=== PATIENT | female | born 1990 | race Caucasian/White ===

== ENCOUNTER 2016-11-25 16:50 | Emergency (ER) | payer OTHER ==
[2016-11-25] MEDS ORDERED: IPRATROPIUM-ALBUTEROL 3 ML NEB INHALATION STA (17:13)
--- NOTE | 2016-11-25 17:16 | ED ---
URI HPI - General Chief Complaint: Upper Respiratory Infection Stated Complaint: Cold Symptoms Time Seen by Provider: 11/25/16 17:09 Source: patient, RN notes reviewed Mode of arrival: ambulatory Limitations: no limitations - History of Present Illness Initial Comments: Patient is a 26-year-old female with a chief complaint of upper respiratory congestion and cough for approximately one day. Patient reports that she completed a course of Levaquin one week ago and was feeling fine. Patient reports that she woke up yesterday with some upper respiratory congestion which is now settled into her lungs. Patient reports she has a productive cough. Patient states that she is a smoker. She denies any recent breathing treatments. She denies any decongestants as well. Patient reports that when she takes a deep breath or coughs she has a left sided rib pain. She denies any significant past medical history. She reports that she is up-to-date on vaccinations. However she did not receive the flu vaccine. - Related Data Previous Rx's Medication Instructions Recorded Acetaminophen-Codeine 300-30mg 1 tab PO Q4H PRN #20 tablet 04/19/16 [Tylenol #3] Albuterol Inhaler [Ventolin Hfa 1 - 2 puff INHALATION Q6HR PRN #1 11/25/16 Inhaler] inhaler predniSONE 50 mg PO DAILY #5 tab 11/25/16 Allergies Allergy/AdvReac Type Severity Reaction Status Date / Time No Known Allergies Allergy Verified 11/25/16 16:59 Review of Systems ROS Statement: Those systems with pertinent positive or pertinent negative responses have been documented in the HPI. ROS Other: All systems not noted in ROS Statement are negative. Past Medical History Additional Past Medical History / Comment(s): Obstetric history: She has had 3 previous vaginal deliveries. This is her fourth and she has had care with Dr Gusman since 7 weeks gestation. O+, abs neg, Rub nonimmune, RPR NR, Hep B neg, HIV NR. She is gestational diabetic on insulin and has been followed with NSTs. History of Any Multi-Drug Resistant Organisms: None Reported Past Surgical History: No Surgical Hx Reported Additional Past Surgical History / Comment(s): diagnostic laparoscopy, removal of IUD and repair of cervical laceration Past Anesthesia/Blood Transfusion Reactions: No Reported Reaction Past Psychological History: Bipolar Smoking Status: Current every day smoker Past Alcohol Use History: Occasional Past Drug Use History: None Reported General Exam - General Exam Comments Initial Comments: Patient is a well-appearing 26-year-old female. She does not appear to be in any acute distress. Limitations: no limitations General appearance: alert, in no apparent distress Head exam: Present: atraumatic, normocephalic, normal inspection Eye exam: Present: normal appearance, PERRL, EOMI. Absent: scleral icterus, conjunctival injection, periorbital swelling ENT exam: Present: normal exam, normal oropharynx, mucous membranes moist, TM's normal bilaterally Neck exam: Present: normal inspection, full ROM. Absent: tenderness, meningismus, lymphadenopathy Respiratory exam: Present: normal lung sounds bilaterally, rhonchi (Rhonchi with clearing with coughing.). Absent: respiratory distress, wheezes, rales, stridor Cardiovascular Exam: Present: regular rate, normal rhythm, normal heart sounds. Absent: systolic murmur, diastolic murmur, rubs, gallop, clicks GI/Abdominal exam: Present: soft, normal bowel sounds. Absent: distended, tenderness, guarding, rebound, rigid Extremities exam: Present: normal inspection, full ROM, normal capillary refill. Absent: tenderness, pedal edema, joint swelling, calf tenderness Back exam: Present: normal inspection Neurological exam: Present: alert, oriented X3, CN II-XII intact Psychiatric exam: Present: normal affect, normal mood Skin exam: Present: warm, dry, intact, normal color. Absent: rash Course Vital Signs 11/25/16 11/25/16 11/25/16 16:57 17:42 17:51 Temperature 97.6 F Pulse Rate 80 86 86 Respiratory 16 Rate Blood Pressure 125/62 O2 Sat by Pulse 98 Oximetry 11/25/16 18:00 Temperature 97.9 F Pulse Rate 80 Respiratory 18 Rate Blood Pressure 134/66 O2 Sat by Pulse 97 Oximetry - Reevaluation(s) Reevaluation #1: 11/25/16 17:40 Patient is given a DuoNeb treatment. Patient does report some improvement with that. Medical Decision Making - Medical Decision Making Patient is a 19-year-old female with 1 day of cough and congestion. Patient reports she's had multiple rounds of antibiotics for the past 6 months. Patient is a smoker. Patient was given a DuoNeb treatment and reports much improvement after that. Chest x-ray was negative for pneumonia. Patient will be started on steroids for bronchitis. Patient understood history plan and turned parameters were discussed. Patient advised follow-up with primary care provider in one to 2 days. - Radiology Data Radiology results: report reviewed Chest x-ray was reviewed and is negative for any acute process. No pneumonia, pleural effusion, pneumothorax or osseous lesions. Disposition Clinical Impression: Bronchitis Disposition: HOME SELF-CARE Condition: Good Instructions: Acute Bronchitis (ED) Additional Instructions: Patient instructed to rest, increase fluids and to use inhaler as directed. Also complete steroid prescription. Return to the [facility] if any alarming signs or symptoms occur. Prescriptions: Albuterol Inhaler [Ventolin Hfa Inhaler] 1 - 2 puff INHALATION Q6HR PRN #1 inhaler PRN Reason: Shortness Of Breath predniSONE 50 mg PO DAILY #5 tab Referrals: Joe Alonso Jr, DO [Primary Care Provider] - 1-2 days Time of Disposition: 17:36
--- NOTE | 2016-11-25 17:35 | XR ---
EXAMINATION TYPE: XR chest 2V DATE OF EXAM: 11/25/2016 5:23 PM COMPARISON: 03/06/2014 HISTORY: Chest pain TECHNIQUE: Frontal and lateral views of the chest are obtained. FINDINGS: Heart and mediastinum are normal. Lungs are clear. Diaphragm is normal. Bony thorax appear s normal. IMPRESSION: Normal chest. No change.
[2016-11-25] MEDS ORDERED: predniSONE 50 MG TAB PO STA (17:43)
[2016-11-25 18:00] VITALS: BP 134/66; PULSE 80; RESP 18; TEMP 97.9
== END 2016-11-25 18:00 | disposition home or self-care (01) ==
LOC: EC 16:50
DX: J40 Bronchitis, not specified as acute or chronic (principal); F17.200 Nicotine dependence, unspecified, uncomplicated
CPT/HCPCS: 94640; 71020; 99283; J7512

== ENCOUNTER 2016-11-30 15:07 | Emergency (ER) | payer OTHER ==
[2016-11-30] MEDS ORDERED: SODIUM CHLORIDE 0.9% 1,000 ML IV STA (17:10)
--- NOTE | 2016-11-30 17:13 | ED ---
General Adult HPI - General Chief complaint: Upper Respiratory Infection Stated complaint: MARIVEL-has bronchitis Time Seen by Provider: 11/30/16 16:54 Source: patient, RN notes reviewed, old records reviewed Mode of arrival: wheelchair Limitations: no limitations - History of Present Illness Initial comments: Patient 26-year-old female who presents emergency room today with a chief complaint of left-sided chest pain. She does admit that she has had cough congestion and been treated for bronchitis. She does admit that she was seen here recently started on steroids. States she's been following up with family doctor saw the family doctor earlier today who started her on a Z-Juan. States that started this and the Vistaril at the pharmacy. Patient admits that she does been using breathing treatments at home with little relief the symptoms. States she's having increased pain to left-sided chest wall. States hurts when she takes deep breath or certain movements. Denies any history of blood clots. Denies any recent travel does admit that she is on control. Patient denies any other complaints or associated symptoms. Patient denies any recent fever, chills, back pain, abdominal pain, nausea or vomiting, numbness or tingling, dysuria or hematuria, constipation or diarrhea, headaches or visual changes, or any other complaints. - Related Data Home Medications Medication Instructions Recorded Confirmed Albuterol Inhaler [Ventolin Hfa 2 puff INHALATION Q6HR PRN 11/30/16 11/30/16 Inhaler] Albuterol Nebulized [Ventolin 2.5 mg INHALATION RT-Q4H PRN 11/30/16 11/30/16 Nebulized] Etonogestrel [Nexplanon ( 68 mg SQ [id number] 11/30/16 11/30/16 control implant)] Naproxen Sodium [Aleve] 220 mg PO BID PRN 11/30/16 11/30/16 Previous Rx's Medication Instructions Recorded predniSONE 50 mg PO DAILY #5 tab 11/25/16 Diclofenac Potassium [Cataflam] 50 mg PO TID #20 tablet 11/30/16 Allergies Allergy/AdvReac Type Severity Reaction Status Date / Time No Known Allergies Allergy Verified 11/30/16 17:13 Review of Systems ROS Statement: Those systems with pertinent positive or pertinent negative responses have been documented in the HPI. ROS Other: All systems not noted in ROS Statement are negative. Past Medical History Past Medical History: No Reported History Additional Past Medical History / Comment(s): Obstetric history: She has had 3 previous vaginal deliveries. This is her fourth and she has had care with Dr Gusman since 7 weeks gestation. O+, abs neg, Rub nonimmune, RPR NR, Hep B neg, HIV NR. She is gestational diabetic on insulin and has been followed with NSTs. History of Any Multi-Drug Resistant Organisms: None Reported Past Surgical History: No Surgical Hx Reported Additional Past Surgical History / Comment(s): diagnostic laparoscopy, removal of IUD and repair of cervical laceration Past Anesthesia/Blood Transfusion Reactions: No Reported Reaction Past Psychological History: Bipolar, Depression Smoking Status: Current every day smoker Past Alcohol Use History: Occasional Past Drug Use History: None Reported General Exam - General Exam Comments Initial Comments: General: The patient is awake and alert, in no distress, and does not appear acutely ill. Eye: Pupils are equal, round and reactive to light, extra-ocular movements are intact. No nystagmus. There is normal conjunctiva bilaterally. No signs of icterus. Ears, nose, mouth and throat: There are moist mucous membranes and no oral lesions. Neck: The neck is supple, there is no tenderness or JVD. Cardiovascular: There is a regular rate and rhythm. No murmur, rub or gallop is appreciated. Pain reproduced on palpation of anterior chest wall. Respiratory: Lungs are clear to auscultation, respirations are non-labored, breath sounds are equal. No wheezes, stridor, rales, or rhonchi. Musculoskeletal: Normal ROM, no tenderness. Strength 5/5. Sensation intact. Pulses equal bilaterally 2+. Neurological: A&O x 3. CN II-XII intact, There are no obvious motor or sensory deficits. Coordination appears grossly intact. Speech is normal. Skin: Skin is warm and dry and no rashes or lesions are noted. Psychiatric: Cooperative, appropriate mood & affect, normal judgment. Limitations: no limitations Course Vital Signs 11/30/16 11/30/16 11/30/16 16:10 17:29 18:45 Temperature 98.6 F 98.4 F 98.0 F Pulse Rate 113 H 84 67 Respiratory 18 16 16 Rate Blood Pressure 133/86 128/80 130/73 O2 Sat by Pulse 100 96 98 Oximetry EKG Findings - EKG Comments: EKG Findings:: EKG performed at 1731: A 12-lead EKG was performed and interpreted by me as showing the following: Rate is 69, and rhythm is normal sinus. There are normal QRS complexes and normal R-wave progression. ST segments have no elevation or depression, and IN segments appear normal. Medical Decision Making - Medical Decision Making Case discussed in detail with attending physician Dr. Moses. Patient reexamined at this time shows no signs of distress. Patient's vitals are stable. EKG shows normal sinus rhythm. Patient's labs reveal a 17,000 white count. She has been on steroids. Patient's CAT scan negative for any PE or other acute abnormalities. Results were discussed with the patient. Patient will be placed on anti-inflammatories. Advised follow-up the family doctor over the next 2 days. Advised return to emergency room if any symptoms increase or worsen or for any other concerns. - Lab Data Result diagrams: 11/30/16 17:22 11/30/16 17:22 Lab Results 11/30/16 11/30/16 11/30/16 Range/Units 17:22 17:22 17:22 WBC 17.7 H (3.8-10.6) k/uL RBC 5.47 H (3.80-5.40) m/uL Hgb 14.8 (11.4-16.0) gm/dL Hct 46.8 H (34.0-46.0) % MCV 85.5 (80.0-100.0) fL MCH 27.1 (25.0-35.0) pg MCHC 31.7 (31.0-37.0) g/dL RDW 13.2 (11.5-15.5) % Plt Count 280 (150-450) k/uL Neutrophils % 85 % Lymphocytes % 11 % Monocytes % 2 % Eosinophils % 1 % Basophils % 0 % Neutrophils # 15.0 H (1.3-7.7) k/uL Lymphocytes # 2.0 (1.0-4.8) k/uL Monocytes # 0.3 (0-1.0) k/uL Eosinophils # 0.2 (0-0.7) k/uL Basophils # 0.0 (0-0.2) k/uL D-Dimer (<0.60) mg/L FEU Sodium 141 (137-145) mmol/L Potassium 4.8 (3.5-5.1) mmol/L Chloride 108 H (98-107) mmol/L Carbon Dioxide 22 (22-30) mmol/L Anion Gap 11 mmol/L BUN 10 (7-17) mg/dL Creatinine 0.60 (0.52-1.04) mg/dL Est GFR (MDRD) Af Amer >60 (>60 ml/min/1.73 sqM) Est GFR (MDRD) Non-Af >60 (>60 ml/min/1.73 sqM) Glucose 116 H (74-99) mg/dL Calcium 10.3 H (8.4-10.2) mg/dL Total Bilirubin 0.4 (0.2-1.3) mg/dL AST 64 H (14-36) U/L ALT 109 H (9-52) U/L Alkaline Phosphatase 112 (38-126) U/L Troponin I (0.000-0.034) ng/mL Total Protein 8.1 (6.3-8.2) g/dL Albumin 5.1 H (3.5-5.0) g/dL Urine Color Urine Appearance (Clear) Urine pH (5.0-8.0) Ur Specific Moffat (1.001-1.035) Urine Protein (Negative) Urine Glucose (UA) (Negative) Urine Ketones (Negative) Urine Blood (Negative) Urine Nitrate (Negative) Urine Bilirubin (Negative) Urine Urobilinogen (<2.0) mg/dL Ur Leukocyte Esterase (Negative) Urine RBC (0-5) /hpf Urine WBC (0-5) /hpf Ur Squamous Epith Cells (0-4) /hpf Urine Bacteria (None) /hpf Urine Mucus (None) /hpf Urine HCG, Qual Not Detected (Not Detectd) 11/30/16 11/30/16 11/30/16 Range/Units 17:22 17:22 17:22 WBC (3.8-10.6) k/uL RBC (3.80-5.40) m/uL Hgb (11.4-16.0) gm/dL Hct (34.0-46.0) % MCV (80.0-100.0) fL MCH (25.0-35.0) pg MCHC (31.0-37.0) g/dL RDW (11.5-15.5) % Plt Count (150-450) k/uL Neutrophils % % Lymphocytes % % Monocytes % % Eosinophils % % Basophils % % Neutrophils # (1.3-7.7) k/uL Lymphocytes # (1.0-4.8) k/uL Monocytes # (0-1.0) k/uL Eosinophils # (0-0.7) k/uL Basophils # (0-0.2) k/uL D-Dimer 0.79 H (<0.60) mg/L FEU Sodium (137-145) mmol/L Potassium (3.5-5.1) mmol/L Chloride (98-107) mmol/L Carbon Dioxide (22-30) mmol/L Anion Gap mmol/L BUN (7-17) mg/dL Creatinine (0.52-1.04) mg/dL Est GFR (MDRD) Af Amer (>60 ml/min/1.73 sqM) Est GFR (MDRD) Non-Af (>60 ml/min/1.73 sqM) Glucose (74-99) mg/dL Calcium (8.4-10.2) mg/dL Total Bilirubin (0.2-1.3) mg/dL AST (14-36) U/L ALT (9-52) U/L Alkaline Phosphatase (38-126) U/L Troponin I <0.012 (0.000-0.034) ng/mL Total Protein (6.3-8.2) g/dL Albumin (3.5-5.0) g/dL Urine Color Light Yellow Urine Appearance Cloudy H (Clear) Urine pH 7.5 (5.0-8.0) Ur Specific Moffat 1.007 (1.001-1.035) Urine Protein Negative (Negative) Urine Glucose (UA) Negative (Negative) Urine Ketones Negative (Negative) Urine Blood Negative (Negative) Urine Nitrate Negative (Negative) Urine Bilirubin Negative (Negative) Urine Urobilinogen <2.0 (<2.0) mg/dL Ur Leukocyte Esterase Moderate H (Negative) Urine RBC 1 (0-5) /hpf Urine WBC 1 (0-5) /hpf Ur Squamous Epith Cells 8 H (0-4) /hpf Urine Bacteria Rare H (None) /hpf Urine Mucus Rare H (None) /hpf Urine HCG, Qual (Not Detectd) Disposition Clinical Impression: Pleurisy Disposition: HOME SELF-CARE Condition: Good Instructions: Pleurisy (ED) Additional Instructions: Please use medication as discussed. Please follow-up with family doctor in the next 2 days of symptoms have not improved. Please return to emergency room if the symptoms increase or worsen or for any other concerns. Prescriptions: Diclofenac Potassium [Cataflam] 50 mg PO TID #20 tablet Time of Disposition: 19:42
[2016-11-30 17:42] LABS: Basophils % (A) 0 %; CH 27.3; CHCM 32.1; Eosinophils # (A) 0.2 k/uL (0-0.7); Eosinophils % (A) 1 %; HCT 46.8 % (34.0-46.0); HDW 2.07; HGB 14.8 gm/dL (11.4-16.0); Luc % (Auto) 1; Lymphocytes % (A) 11 %; MCH 27.1 pg (25.0-35.0); MCHC 31.7 g/dL (31.0-37.0); MCV 85.5 fL (80.0-100.0); Mean Platelet Volume 7.3; Monocytes # (A) 0.3 k/uL (0-1.0); Monocytes % (A) 2 %; Neutrophils % (A) 85 %; RBC 5.47 m/uL (3.80-5.40); RDW 13.2 % (11.5-15.5); WBC 17.7 k/uL (3.8-10.6); WBC (Perox) 18.42
[2016-11-30 17:54] LABS: Appearance,Urine Cloudy (Clear); Bacteria,Urine Rare /hpf; Bilirubin,Urine Negative (Negative); Glucose,Urine (UA) Negative (Negative); Ketones,Urine Negative (Negative); Leukocyte Esterase,Urine Moderate (Negative); Mucus,Urine Rare /hpf; Nitrite,Urine Negative (Negative); PH, Urine 7.5 (5.0-8.0); Particle Count 6105; Protein,Urine Negative (Negative); RBC,Urine 1 /hpf (0-5); Specific Gravity,Urine 1.007 (1.001-1.035); Squamous Epithelial Cell,Urine 8 /hpf (0-4); UA Billing (MACRO vs. MICRO) MICRO; Urobilinogen,Urine <2.0 mg/dL (<2.0); WBC,Urine 1 /hpf (0-5)
[2016-11-30] MEDS ORDERED: RX INFO: IV CONTRAST WAS GIVEN 1 EACH MISC MISCELLANE PRN (17:56)
[2016-11-30 18:02] LABS: ALT 109 U/L (9-52); AST 64 U/L (14-36); Alkaline Phosphatase 112 U/L (38-126); Anion Gap 11 mmol/L; Blood Urea Nitrogen 10 mg/dL (7-17); Calcium 10.3 mg/dL (8.4-10.2); Carbon Dioxide 22 mmol/L (22-30); Chloride 108 mmol/L (98-107); Glucose 116 mg/dL (74-99); Non-African American GFR(MDRD) >60 (>60 ml/min/1.73 sqM); Potassium 4.8 mmol/L (3.5-5.1); Sodium 141 mmol/L (137-145); Total Bilirubin 0.4 mg/dL (0.2-1.3); Total Protein 8.1 g/dL (6.3-8.2)
--- NOTE | 2016-11-30 19:33 | CT ---
EXAMINATION TYPE: CT angio chest DATE OF EXAM: 11/30/2016 6:43 PM COMPARISON: NONE HISTORY: Shortness of breath and chest pain CT DLP: 139.6 mGycm. Automated Exposure Control for Dose Reduction was Utilized. CONTRAST: CTA scan of the thorax is performed with IV Contrast, patient injected with 100 mL of Omnipaque 350, pulmonary embolism protocol. MIP Images are created on CT scanner and reviewed. FINDINGS: LUNGS: There is diffuse interseptal lobular thickening, scattered groundglass opacities greatest with in the dependent aspect of the lung within the lower lobes, and innumerable sub-4 mm scattered pulmon thee nodules throughout the lungs with very mild bronchiectasis of the upper lobes. No pleural effusio n, pneumothorax, or focal consolidation is identified. The lungs are grossly clear, there is no ruth rning parenchymal mass or nodule identified. There is no pleural effusion or pneumothorax seen. Th e tracheobronchial tree is patent. MEDIASTINUM: There is satisfactory enhancement of the pulmonary artery and its branches, there is no CT evidence for pulmonary embolism. There are no greater than 1 cm hilar or mediastinal lymph nodes. No cardiomegaly or pericardial effusion is seen. OTHER: No additional significant abnormality is seen. IMPRESSION: 1. No evidence of pulmonary embolus. 2. Interstitial findings that most likely relate to infectious or inflammatory etiologies. Follow-up CT in 3 months is recommended for reevaluation to evaluate for resolution/progression.
[2016-11-30 19:58] VITALS: BP 121/79; PULSE 80; RESP 18; TEMP 98.3
== END 2016-11-30 19:57 | disposition home or self-care (01) ==
LOC: EC 15:07
DX: R09.1 Pleurisy (principal); F17.200 Nicotine dependence, unspecified, uncomplicated
CPT/HCPCS: 36415; 93005; 85379; 80053; 84484; 85025; 81001; 81025; 71275; 99284; 96360; Q9967

== ENCOUNTER → 2017-01-11 | Outpatient (CLI) | payer OTHER ==
--- NOTE | 2017-01-11 08:27 | CT ---
EXAMINATION TYPE: High-resolution CT chest DATE OF EXAM: 01/11/2017 7:57 AM COMPARISON: 11/30/2016 HISTORY: 26-year-old female with chest pain, and shortness of breath TECHNIQUE: Contiguous high-resolution axial scanning of the chest without IV contrast. 1 mm slice thi ckness with 1 cm gap per HRCT protocol. Both supine and prone imaging was performed. CT DLP: 233.6 mGycm Automated exposure control for dose reduction was used. FINDINGS: The heart is normal size without pericardial effusion. Aorta is normal caliber with conventional arch vessel branching anatomy. No definite thoracic lymphadenopathy given noncontrast HRCT technique. There is mild diffuse bronchial wall thickening. No significant septal lines bronchiectasis, thickeni ng of the bronchovascular bundles, tree-in-bud opacities, or cystic changes are identified. No domina nt groundglass mosaic attenuation. There may be mild centrilobular nodularity in the upper lungs but this is not a dominant finding. No consolidation or pleural effusion. Visualized upper abdomen shows numerous calculi packing the gallbladder lumen. Bones: No osseous destructive process. IMPRESSION: 1. MILD DIFFUSE BRONCHIAL WALL THICKENING COULD REPRESENT BRONCHITIS OR CHRONIC ASTHMA. 2. THERE MAY BE MINIMAL CENTRILOBULAR NODULARITY IN THE UPPER LUNGS THOUGH THIS IS NOT A DOMINANT FIN DING. IF THE PATIENT IS A SMOKER, THIS CAN BE SEEN IN THE SETTING OF RESPIRATORY BRONCHIOLITIS. 3. OTHERWISE, NO SPECIFIC FINDINGS OF INTERSTITIAL LUNG DISEASE.
== END | disposition home or self-care (01) ==
LOC: RADCTMAIN 07:38
PROVIDERS: ATTEND Internal Medicine Critical Care Medicine
DX: R93.8 Abnormal findings on diagnostic imaging of other specified body structures (principal); R05 Cough; R07.9 Chest pain, unspecified; R06.89 Other abnormalities of breathing
CPT/HCPCS: 71250

== ENCOUNTER → 2017-03-19 | Outpatient (CLI) | payer OTHER ==
--- NOTE | 2017-03-19 15:58 | CT ---
EXAMINATION TYPE: CT sinus wo con DATE OF EXAM: 03/19/2017 3:24 PM COMPARISON: NONE HISTORY: Patient complains of chronic sinus infection unresponsive to treatment. CT DLP: 594 mGycm CONTRAST: None The paranasal sinuses are examined in the axial plane at 2 mm thick sections. Reconstructed images i n the coronal plane were obtained. There is dental amalgam scatter artifact The maxillary sinuses are clear. The ethmoid air cells are clear. The sphenoid sinuses are clear. The frontal sinuses are clear. The septum is evaluated. There is septal deviation to the left. The ostiomeatal units are patent. IMPRESSIONS: 1. No acute sinusitis. 2. No chronic sinusitis.
== END | disposition home or self-care (01) ==
LOC: RADCTMAIN 15:02
PROVIDERS: ATTEND Otolaryngology Pediatric Otolaryngology
DX: J32.9 Chronic sinusitis, unspecified (principal)
CPT/HCPCS: 70486

== ENCOUNTER → 2017-04-03 | Outpatient (CLI) | payer OTHER ==
--- NOTE | 2017-04-03 11:12 | ECHOS ---
DATE OF SERVICE: 04/03/2017 AGE: 27Y SEX: F HT: 63 WT: 147 lbs. Protocol Bryan: X Others: Stress Echo Stage: IV Dur. of Exercise: 10 minutes *Heart Rate Blood Pressure *Rest: 90 Rest: 115/69 * *Max. Achieved: 175 Maximum BP: 158/82 85% PMHR: 163 100% PMHR: 192 *METS: 11.7 INDICATION OF THE STUDY: Chest pain. MEDICATIONS: Wellbutrin, Zoloft, Tramadol, Symbicort, omeprazole. STRESS DATA: Pretesting physical examination showed a heart rate of 90, pressure is 115/69 mmHg. Baseline EKG showed sinus rhythm. The patient exercised on the treadmill according to Bryna protocol for a total of 10 minutes and achieved 11.7 METs. Max heart rate was 175, which is about 91% of maximum predicted heart rate and maximum pressure was 158/82 mmHg. Clinically, the patient did not have any symptoms of chest pain or discomfort. The EKG did not show any evidence of ischemic ST changes. ECHOCARDIOGRAM IMAGES: On echocardiogram images from parasternal long axis view, parasternal short axis view, apical 4 chamber view and apical 2 chamber view were obtained as baseline images, at the peak of the heart rate, as well as on recovery and the echocardiogram images showed normal wall motion without any evidence of abnormalities consistent with ischemia. CONCLUSION: 1. Excellent exercise capacity. 2. Normal EKG in response to exercise. 3. Normal echocardiogram in response to exercise. 4. Essentially normal stress echocardiogram for this patient.
== END | disposition home or self-care (01) ==
LOC: RADNMMAIN 09:02
PROVIDERS: ATTEND Family Medicine
DX: Z09 Encounter for follow-up examination after completed treatment for conditions other than malignant neoplasm (principal); Z82.49 Family history of ischemic heart disease and other diseases of the circulatory system
CPT/HCPCS: 93017; 93350

== ENCOUNTER → 2017-08-16 | Outpatient (CLI) | payer OTHER ==
--- NOTE | 2017-08-16 12:12 | XR ---
EXAMINATION TYPE: XR ankle complete RT DATE OF EXAM: 08/16/2017 COMPARISON: NONE HISTORY: 27-year-old female with right ankle injury and contusion. Pain. TECHNIQUE: 3 views FINDINGS: The ankle mortise is congruent and there is preservation of the distal tibiofibular overlap. Talar do me is intact. No acute fracture, subluxation, or dislocation. Os peroneum noted. IMPRESSION: No acute osseous abnormality seen.
== END ==
LOC: RADXRMAIN 11:52
PROVIDERS: ATTEND Emergency Medicine
DX: S90.01XA Contusion of right ankle, initial encounter (principal)

== ENCOUNTER → 2018-03-11 | Outpatient (CLI) | payer OTHER ==
--- NOTE | 2018-03-11 10:08 | US ---
EXAMINATION TYPE: US abdomen complete DATE OF EXAM: 03/11/2018 COMPARISON: CT chest 01/11/2017 CLINICAL HISTORY: R10.10 Abdominal Pain. EXAM MEASUREMENTS: Liver Length: 13.7 cm Gallbladder Wall: 0.2 cm CBD: 0.3 cm Spleen: 10.6 cm Right Kidney: 11.1 x 4.5 x 4.8 cm Left Kidney: 10.7 x 5.6 x 4.8 cm Pancreas: wnl Liver: wnl Gallbladder: cholelithiasis, DOMONIQUE sign Evidence for sonographic Baum's sign: CBD: wnl Spleen: wnl Right Kidney: Inferior pole slightly obscured by bowel gas Left Kidney: wnl Upper IVC: wnl Abd Aorta: wnl There is no ascites. The liver is homogenous. The intrahepatic portion of the IVC and proximal abdominal aorta are within normal limits. There is no evidence of cholelithiasis. Common bile duct is unremarkable. The visu alized portions of the pancreas are homogenous. The spleen is unremarkable. Kidneys are symmetric a nd free of hydronephrosis. No renal lesions are seen, cortical medullary differentiation is maintain ed. IMPRESSION: Findings compatible with cholelithiasis. Gallbladder is filled with stones.
--- NOTE | 2018-03-11 10:41 | US ---
EXAMINATION TYPE: US pelvic complete DATE OF EXAM: 03/11/2018 COMPARISON: US dated 04/19/2016 CLINICAL HISTORY: R10.10 Abdominal Pain. TECHNIQUE: Transabdominal sonographic images of the pelvis were acquired. EXAM MEASUREMENTS: Uterus: 8.2 x 2.9 x 2.2 cm Endometrial Stripe: 0.4 cm Right Ovary: 3.2 x 2.1 x 2.2 cm Left Ovary: 3.2 x 1.9 x 1.9 cm Right ovary shows a cystic focus measuring 14 mm. Right ovary shows small cystic foci 1. Uterus: Anteverted, wnl 2. Endometrium: wnl 3. Right Ovary: wnl 4. Left Ovary: wnl 5. Bilateral Adnexa: wnl 6. Posterior cul-de-sac: wnl IMPRESSION: Small cystic focus associated with the right ovary likely represents follicle, follow-up as indicated.
== END | disposition home or self-care (01) ==
LOC: RADUSWWP 07:34
PROVIDERS: ATTEND Family Medicine
DX: K80.20 Calculus of gallbladder without cholecystitis without obstruction (principal)
CPT/HCPCS: 76700; 76856

== ENCOUNTER → 2018-09-27 | Outpatient (CLI) | payer OTHER ==
--- NOTE | 2018-09-28 11:36 | MR ---
EXAMINATION TYPE: MR cervical spine wo con DATE OF EXAM: 09/27/2018 COMPARISON: HISTORY: Neck pain/stiffness, radiates down lt arm, headaches TECHNIQUE: Multiplanar, multisequence images of the cervical spine were acquired. FINDINGS: Bone marrow signal throughout is slightly decreased on T1-weighted images. Disc desiccation is seen at C2-C3, C3-C4 and slightly at C4-C5. The visualized portions of the posterior fossa are gr ossly unremarkable. Spinal cord signal and volume is unremarkable throughout. Vertebral body heights and alignment of the cervical spine are maintained. C2-C3: Mild disc desiccation. No disc bulge/herniation or protrusion. No Canal stenosis. Foramina are patent bilaterally. C3-C4: Very small left eccentric disc bulge is seen. No spinal canal stenosis or neural foraminal jasmine rowing. C4-C5: Small broad-based disc bulge is seen without spinal canal stenosis or neural foraminal narrowi ng. C5-C6: No evidence for degenerative disc disease. No disc bulge/herniation or protrusion. No Canal stenosis. Foramina are patent bilaterally. C6-C7: No evidence for degenerative disc disease. No disc bulge/herniation or protrusion. No Canal stenosis. Foramina are patent bilaterally. C7-T1: No evidence for degenerative disc disease. No disc bulge/herniation or protrusion. No Canal stenosis. Foramina are patent bilaterally. IMPRESSION: 1. No evidence of disc herniation or spinal canal stenosis. 2. Mild degenerative disc disease from C2 through C5 with very small left eccentric disc bulge at C3- C4. No neural foraminal narrowing throughout the cervical spine. 3. Generalized slightly decreased bone marrow signal throughout that can be seen in anemia or myelopr oliferative disorders. Correlate with CBC.
== END | disposition home or self-care (01) ==
LOC: RADMRIMAIN 21:06
PROVIDERS: ATTEND Family Medicine
DX: M50.21 Other cervical disc displacement, high cervical region (principal); M50.31 Other cervical disc degeneration, high cervical region
CPT/HCPCS: 72141

== ENCOUNTER → 2019-03-28 | Outpatient (CLI) | payer OTHER ==
--- NOTE | 2019-03-28 08:26 | MM ---
Reason for exam: clinical finding. Baseline mammogram. History: Took hormonal contraceptives for 5 years. Physical Findings: Nurse did not find any significant physical abnormalities on exam. MG Diagnostic Mammo w CAD PETER Bilateral CC, MLO, and XCCL view(s) were taken. The breast tissue is heterogeneously dense. This may lower the sensitivity of mammography. There is no discrete abnormality. These results were verbally communicated with the patient and result sheet given to the patient on 03/28/19. ASSESSMENT: Negative, BI-RAD 1 RECOMMENDATION: Routine screening mammogram of both breasts at age 39. Manage on a clinical basis with regard to pain.
== END ==
LOC: RADMAMWWP 06:55
PROVIDERS: ATTEND Family Medicine
DX: N64.4 Mastodynia (principal); N64.52 Nipple discharge
CPT/HCPCS: 77066

== ENCOUNTER → 2019-04-15 | Outpatient (CLI) | payer OTHER ==
[2019-04-15 16:43] LABS: Basophils % (A) 0 %; Eosinophils # (A) 0.1 k/uL (0-0.7); Eosinophils % (A) 1 %; HCT 40.1 % (34.0-46.0); HGB 12.8 gm/dL (11.4-16.0); Lymphocytes # (A) 3.6 k/uL (1.0-4.8); Lymphocytes % (A) 37 %; MCH 27.4 pg (25.0-35.0); MCV 85.6 fL (80.0-100.0); Mean Platelet Volume 7.5; Monocytes # (A) 0.4 k/uL (0-1.0); Monocytes % (A) 4 %; Neutrophils # (A) 5.5 k/uL (1.3-7.7); Neutrophils % (A) 57 %; Platelet Count 267 k/uL (150-450); RBC 4.68 m/uL (3.80-5.40); RDW 14.1 % (11.5-15.5); WBC 9.7 k/uL (3.8-10.6)
[2019-04-15 23:44] LABS: African American GFR (CKD) 134.7 (60.0-200.0); Albumin 4.4 g/dL (3.80-4.90); Albumin/Globulin Ratio 2.44 (1.60-3.17); Anion Gap 8.1 mmol/L (4.00-12.00); BUN/Creat Ratio 17.14 Ratio (12.00-20.00); Calcium 9.6 mg/dL (8.7-10.3); Carbon Dioxide 26.9 mmol/L (21.6-31.8); Globulin 1.8 g/dL (1.6-3.3); Potassium 3.9 mmol/L (3.5-5.5); Total Bilirubin 0.3 mg/dL (0.2-1.2); Total Protein 6.2 g/dL (6.2-8.2)
[2019-04-16 00:12] LABS: Rheumatoid Factor 10 IU/mL (0-15)
== END | disposition home or self-care (01) ==
LOC: LABWHC1 15:06
PROVIDERS: ATTEND Nurse Practitioner Acute Care
DX: I49.9 Cardiac arrhythmia, unspecified (principal); E55.9 Vitamin D deficiency, unspecified; M79.7 Fibromyalgia
CPT/HCPCS: 36415; 80053; 82306; 82607; 85025; 86038; 86431; 93005

== ENCOUNTER → 2020-01-29 | Outpatient (CLI) | payer OTHER ==
--- NOTE | 2020-01-29 11:45 | EST ---
EXERCISE STRESS AGE: 29 SEX: F HT: 63" WT: 155 PROTOCOL: Bryan Stress Test STAGE: 4 DURATION OF EXERCISE: 10:00 HEART RATE REST: 77 BLOOD PRESSURE REST: 130/89 MAXIMUM HEART RATE ACHIEVED: 171 MAXIMUM BLOOD PRESSURE: 155/94 85% MPHR: 162 100% MPHR: 190 METS: 11.7 INDICATIONS: Chest pain. CLINICAL INFORMATION: Baseline rhythm is a sinus mechanism, normal axis and intervals. Normal electrocardiogram. Baseline blood pressure 130/89 mmHg. Patient exercised on Bryan protocol for 10 minutes reaching peak rate 171 beats per minute which is equal to 90% maximum predicted heart rate. Peak blood pressure 155/94 mmHg. Test was terminated due to fatigue. There was no chest pain. Electrocardiograph monitoring revealed no evidence of diagnostic ischemic ST deviation. CONCLUSION: 1. Average exercise tolerance with episode of chest discomfort of unclear etiology. 2. Normal electrocardiographic stress testing with no evidence of exercise-induced ischemia. MMODL / IJN: [id number] /
== END | disposition home or self-care (01) ==
LOC: RADNMMAIN 08:32
PROVIDERS: ATTEND Family Medicine
DX: R07.89 Other chest pain (principal); Z82.49 Family history of ischemic heart disease and other diseases of the circulatory system
CPT/HCPCS: 93017

== ENCOUNTER → 2020-07-08 | Outpatient (CLI) | payer OTHER ==
[2020-07-08 14:03] LABS: Basophils # (A) 0.1 k/uL (0-0.2); Basophils % (A) 1 %; Eosinophils # (A) 0.1 k/uL (0-0.7); Eosinophils % (A) 1 %; HCT 43.5 % (34.0-46.0); HGB 13.6 gm/dL (11.4-16.0); Lymphocytes # (A) 3.3 k/uL (1.0-4.8); Lymphocytes % (A) 36 %; MCH 27.8 pg (25.0-35.0); MCHC 31.2 g/dL (31.0-37.0); MCV 88.8 fL (80.0-100.0); Mean Platelet Volume 7.9; Monocytes # (A) 0.4 k/uL (0-1.0); Monocytes % (A) 4 %; Neutrophils # (A) 5.2 k/uL (1.3-7.7); Neutrophils % (A) 57 %; Platelet Count 242 k/uL (150-450); RDW 13.3 % (11.5-15.5); WBC 9.3 k/uL (3.8-10.6)
[2020-07-08 23:58] LABS: C Reactive Protein <0.4 mg/dL (0.0-0.8); Rheumatoid Factor, Qnt 10 IU/mL (0-15)
[2020-07-09 01:10] LABS: Erythrocyte Sedimentation Rate 6 mm/Hr (0-20)
[2020-07-09 07:01] LABS: DNA Double-Stranded NEGATIVE (NEGATIVE)
== END | disposition home or self-care (01) ==
LOC: LABWHC1 13:17
PROVIDERS: ATTEND Family Medicine
DX: R07.89 Other chest pain (principal)
CPT/HCPCS: 36415; 84439; 84443; 85025; 85652; 86038; 86140; 86162; 86225; 86431

== ENCOUNTER → 2020-07-20 | Outpatient (CLI) | payer OTHER ==
--- NOTE | 2020-07-20 17:21 | P.STRESS ---
- Stress Test Note Stress Test Results/Findings: Exam Performed: Exam Date: Reason for Exam: Height: 0 in Weight: 0 g Protocol: Stage: Duration of Exercise: Resting Heart Rate: Resting Blood Pressure: Maximum Achieved Heart Rate: Maximum Achieved Blood Pressure: 85% PMHR: 100% PMHR: METS: Technologist Comment: Stress Test Results/Findings: Baseline heart rate 87 beats a minute, Baseline blood pressure 140/91 mmHg Patient exercised on a Bryan protocol for 9 minutes achieving a peak heart rate of 164 beats a minute. Peak blood pressure 160 100 mmHg Baseline 12-lead ECG showed normal sinus rhythm and normal cardiac intervals There is no ECG evidence for ischemia. No arrhythmias were noted. The baseline 2-D echo images showed normal LV systolic function without any segmental wall motion abnormalities At peak exercise there was augmentation of overall LV contractility without developing any wall motion abnormalities At recovery regional global LV systolic function within normal Impression No ECG evidence for ischemia #2 no definite echocardiographic evidence for ischemia Patient exercised on a Bryan protocol for 9 minutes achieving 87% of her predicted maximum heart rate for age.
--- NOTE | 2020-07-21 10:20 | ECHOS ---
Stress Test Results/Findings: Exam Performed: Stress Echo Exam Date: 07/20/2020 Reason for Exam: Chest Pain Height: 63 in Weight: 140lbs Protocol: Stress Echo Stage: 3 Duration of Exercise: 9:00 Resting Heart Rate: 87 Resting Blood Pressure: 140/91 Maximum Achieved Heart Rate:164 Maximum Achieved Blood Pressure: 160/100 85% PMHR: 161 100% PMHR: 189 METS: Technologist Comment: Stress Test Results/Findings: Baseline heart rate 87 beats a minute, Baseline blood pressure 140/91 mmHg Patient exercised on a Bryan protocol for 9 minutes achieving a peak heart rate of 164 beats a minute. Peak blood pressure 160 100 mmHg Baseline 12-lead ECG showed normal sinus rhythm and normal cardiac intervals There is no ECG evidence for ischemia. No arrhythmias were noted. The baseline 2-D echo images showed normal LV systolic function without any segmental wall motion abnormalities At peak exercise there was augmentation of overall LV contractility without developing any wall motion abnormalities At recovery regional global LV systolic function within normal Impression No ECG evidence for ischemia #2 no definite echocardiographic evidence for ischemia Patient exercised on a Bryan protocol for 9 minutes achieving 87% of her predicted maximum heart rate for age. Additional CC's: Joe BRYSON
== END | disposition home or self-care (01) ==
LOC: RADNMMAIN 09:08
PROVIDERS: ATTEND Family Medicine
DX: R07.89 Other chest pain (principal)
CPT/HCPCS: 93351

== ENCOUNTER → 2021-02-18 | Outpatient (CLI) | payer OTHER ==
--- NOTE | 2021-02-18 16:47 | XR ---
EXAMINATION TYPE: XR abdomen 1V DATE OF EXAM: 02/18/2021 Comparison: 04/19/2016 Clinical History: 30-year-old female S39.011A, R10.0. Epigastric pain for 5 to 6 months. Findings: Right mid abdominal calcification density measuring 4 mm, likely nonobstructive right renal calculus. There is some high density punctate foci in the right upper quadrant. Correlate for any history of p rior surgery/cholecystectomy. No dilated small bowel air-fluid levels. Scattered mild to moderate stool. Numerous pelvic fluid was. Lung bases are clear. Supine imaging limited for assessment of free air. Impression: 1. High density material projecting in the right upper quadrant, not seen in 2016. Query interval lily breonna/cholecystectomy. 2. 4 mm calcification right mid abdomen, suspect nonobstructive right renal calculus. 3. Mild to moderate stool burden. No evidence for bowel obstruction.
== END | disposition home or self-care (01) ==
LOC: RADXRMAIN 15:50
PROVIDERS: ATTEND Nurse Practitioner Women's Health
DX: S39.011A Strain of muscle, fascia and tendon of abdomen, initial encounter (principal)
CPT/HCPCS: 74018

== ENCOUNTER → 2021-03-07 | Outpatient (CLI) | payer OTHER ==
--- NOTE | 2021-03-08 04:35 | MR ---
EXAMINATION TYPE: MR abdomen wo/w con DATE OF EXAM: 03/07/2021 COMPARISON: None HISTORY: Epigastric pain CONTRAST: Standard multiplanar, multisequence MRI departmental protocol utilizing 6.5 mL intravenous Gadavist g adolinium contrast. Liver and spleen appear intact. The bile ducts are not dilated. I see no focal liver defect. Stomach appears normal. The pancreas appears normal. Pancreatic duct appears normal. Gallbladder appears abse nt. There is no sign of adrenal mass. Kidneys have normal size. There is no hydronephrosis. There is no s ign of retroperitoneal adenopathy. Ureters are not dilated. There is no sign of mesenteric edema. There is no ascites. There is no evidence of a bowel obstructio n. The contrast images show normal enhancement of the portal venous system. There is normal enhanceme nt of the inferior vena cava and hepatic veins. There is no pathologic enhancement. IMPRESSION: Normal MR scan of the abdomen.
== END | disposition home or self-care (01) ==
LOC: RADMRIMAIN 20:49
PROVIDERS: ATTEND Nurse Practitioner Women's Health
DX: R10.13 Epigastric pain (principal)
CPT/HCPCS: 74183; A9585

== ENCOUNTER → 2021-03-16 | Outpatient (CLI) | payer OTHER | END | disposition home or self-care (01) | LOC: LABWHC1 08:26 | PROVIDERS: ATTEND Obstetrics & Gynecology | DX: N92.6 Irregular menstruation, unspecified (principal) | CPT/HCPCS: 36415; 84702 ==

== ENCOUNTER → 2021-12-27 | Outpatient (CLI) | payer OTHER ==
--- NOTE | 2021-12-27 20:47 | CT ---
EXAMINATION TYPE: CT angio chest DATE OF EXAM: 12/27/2021 COMPARISON: CT dated 01/11/2017 HISTORY: Chest pain, hx pneumonia CT DLP: 129.20 mGy.cm. Automated Exposure Control for Dose Reduction was Utilized. TECHNIQUE AND CONTRAST: CTA scan of the thorax is performed with IV Contrast, patient injected with 100 mL of Isovue 370, pul [facility] angiogram protocol. MIP Images are created on CT scanner and reviewed. FINDINGS: No definite filling defect within the pulmonary trunk, main pulmonary arteries, lobar and segmental a nd proximal subsegmental branches to suggest pulmonary embolism. Distal subsegmental branches are sub optimally assessed. The pulmonary trunk measures 2.4 cm. Millimetric densities are seen in the dependent portion of the padilla and the proximal main bronchi, likely representing intraluminal secretions. Unremarkable lungs otherwise. No pleural or pericardial effusion. No cardiomegaly. 11 mm right hilar lymph node, stable since 2017 CT scan. Other scattered smaller subcentimeter bilate ral hilar and mediastinal lymph nodes without interval progression. Previous cholecystectomy. No aggr essive bone lesion. IMPRESSION: No evidence of pulmonary embolism. No definite acute abnormality seen in the chest. Incidental findin gs as described above.
== END | disposition home or self-care (01) ==
LOC: RADCTMAIN 17:44
PROVIDERS: ATTEND Internal Medicine Critical Care Medicine
DX: R07.9 Chest pain, unspecified (principal)
CPT/HCPCS: 71275; Q9967

== ENCOUNTER → 2023-11-05 | Outpatient (CLI) | payer OTHER ==
--- NOTE | 2023-11-05 08:30 | USB ---
Reason for Exam: Clinical finding. Patient History: Menarche at age 12. First Full-Term at age 18. Patient has history of breast feeding. Patient used Hormonal Contraceptives for 5 years. Technique: Method: Targeted. Prior Study Comparison: 03/28/2019 Bilateral Diagnostic Mammogram, [facility]. Findings: The upper outer quadrant of the right breast, the axilla of the right breast and the retroareolar of the right breast were scanned. 3 small cystic areas are evident within the subareolar right breast. This would include a complex cyst measuring 0.7 x 0.4 x 0.7 cm with a septation. This is at the 9:00 position 1 cm from the nipple. There is a 0.6 x 0.4 x 0.5 cm cyst 10:00 position 1 cm from the nipple. X line There is a 0.5 x 0.3 x 0.5 cm small cyst too small to classify 2 cm from nipple 10:00 position. Overall Assessment: Probably benign, BI-RAD 3 Management: Diagnostic Breast Ultrasound of the right breast in 6 months. A clinical breast exam by your physician is recommended on an annual basis and results should be correlated with mammographic findings. This exam should not preclude additional follow-up of suspicious palpable abnormalities. Results were given to the patient verbally at the time of exam. Electronically signed and approved by: Dilshad Ogden D.O. Radiologis
--- NOTE | 2023-11-05 09:03 | MM ---
Reason for Exam: Clinical finding. Last mammogram was performed 4 year(s) and 8 month(s) ago. Indicated Problems: Lump or thickening of the right side for 2 Month(s). Patient History: Menarche at age 12. First Full-Term at age 18. Patient has history of breast feeding. Patient used Hormonal Contraceptives for 5 years. Prior Study Comparison: 03/28/2019 Bilateral Diagnostic Mammogram, [facility]. Tissue Density: Right: The breast tissue is heterogeneously dense. This may lower the sensitivity of mammography. Findings: Analyzed By CAD. Pattern appears stable. A palpable marker is near the nipple. There is some increased density on the mammogram in this region which is nonspecific. Additional evaluation with ultrasound is recommended. Overall Assessment: Incomplete: need additional imaging evaluation, BI-RAD 0 Management: Diagnostic Breast Ultrasound of the right breast. A negative mammogram report should not preclude additional follow up of suspicious palpable abnormalities. Patient should continue monthly self breast exam. A clinical breast exam by your physician is recommended on an annual basis and results should be correlated with mammographic findings. Electronically signed and approved by: Dilshad Ogden D.O. Radiologis
== END | disposition home or self-care (01) ==
LOC: RADMAMWWP 07:23
PROVIDERS: ATTEND Family Medicine
DX: N60.01 Solitary cyst of right breast (principal); N63.10 Unspecified lump in the right breast, unspecified quadrant
CPT/HCPCS: 77065; 76642; G0279; 77061

== ENCOUNTER → 2024-05-26 | Outpatient (CLI) | payer OTHER ==
--- NOTE | 2024-05-26 09:02 | USB ---
Reason for Exam: Follow-up at short interval from prior study. Patient History: Menarche at age 12. First Full-Term at age 18. Patient has history of breast feeding. Patient used Hormonal Contraceptives for 5 years. Risk Values: Genesis 5 year model risk: 0.2%. NCI Lifetime model risk: 7.5%. Technique: Method: Targeted. Prior Study Comparison: 03/28/2019 Bilateral Diagnostic Mammogram, [facility]. 11/05/2023 Right MG 3D diag mammo w/cad RT, [facility]. Findings: The upper outer quadrant of the right breast, the axilla of the right breast and the retroareolar of the right breast were scanned. 2 small to characterize lesions at the right 10:00 position 1 2 cm from the nipple measures 4 x 4 mm unchanged from prior study in the second 1 cm from the nipple measuring 4 x 4 mm. There is a third lesion now with the peripheral focus of increased echogenicity measuring 4 x 5 mm also unchanged at the 9:00 position 1 cm from the nipple. No solid masses are present.. Overall Assessment: Probably benign, BI-RAD 3 Management: Diagnostic Breast Ultrasound of the right breast in 6 months. A clinical breast exam by your physician is recommended on an annual basis and results should be correlated with mammographic findings. This exam should not preclude additional follow-up of suspicious palpable abnormalities. Results were given to the patient verbally at the time of exam. Electronically signed and approved by: Brandon Henry M.D. Radiologis
== END | disposition home or self-care (01) ==
LOC: RADUSWWP 08:22
PROVIDERS: ATTEND Family Medicine
DX: R92.30 Dense breasts, unspecified (principal)

== ENCOUNTER 2024-09-09 20:20 | Emergency (ER) | payer OTHER ==
[2024-09-09 20:28] VITALS: TEMP 98.3
[2024-09-09 20:56] LABS: Basophils % (A) 0 %; Eosinophils # (A) 0.1 k/uL (0-0.7); Eosinophils % (A) 1 %; HCT 40.3 % (34.0-46.0); HGB 13.3 gm/dL (11.4-16.0); Lymphocytes # (A) 3.5 k/uL (1.0-4.8); Lymphocytes % (A) 38 %; MCH 28.2 pg (25.0-35.0); MCV 85.4 fL (80.0-100.0); Mean Platelet Volume 7.5; Monocytes # (A) 0.5 k/uL (0-1.0); Monocytes % (A) 5 %; Neutrophils % (A) 54 %; Platelet Count 305 k/uL (150-450); RBC 4.72 m/uL (3.80-5.40); WBC 9.3 k/uL (3.8-10.6)
[2024-09-09] MEDS: KETOROLAC 15 MG/ML 1 ML VIAL IVP STA (20:58)
--- NOTE | 2024-09-09 21:07 | XR ---
EXAMINATION TYPE: XR chest 2V DATE OF EXAM: 09/09/2024 8:53 PM COMPARISON: Chest radiographs from 11/25/2016. CLINICAL INDICATION: Female, 34 years old with history of Chest Pain; TECHNIQUE: XR chest 2V Frontal and lateral views of the chest. FINDINGS: Lungs/Pleura: There is no evidence of pleural effusion, focal consolidation, or pneumothorax. Pulmonary vascularity: Unremarkable. Heart/mediastinum: Cardiomediastinal silhouette is unremarkable. Musculoskeletal: No acute osseous pathology. IMPRESSION: No acute cardiopulmonary disease/process. [facility] Bernadette Salgado, , 09/09/2024 9:05 PM
[2024-09-09 21:16] LABS: Partial Thromboplastin Time 25.9 sec (22.0-30.0); Prothrombin Time 10.5 sec (10.0-12.5)
--- NOTE | 2024-09-09 21:18 | ED ---
Chest Pain HPI - General Chief Complaint: Chest Pain Stated Complaint: Chest and abd pain Time Seen by Provider: 09/09/24 20:24 Source: patient, EMS, RN notes reviewed Mode of arrival: EMS Limitations: no limitations - History of Present Illness Initial Comments: 34-year-old female presents emergency department chief complaint of chest and abdominal comfort. Patient states that started earlier tonight. Patient states she does have some pain with movement and deep inspiration. She denies any trauma no rashes no prior cardiac or lung disease. Patient denies any fevers or chills. Patient states that she took some aspirin by EMS which seemed to help. Patient denies any nausea vomiting denies any back pain no dysuria - Related Data Home Medications Medication Instructions Recorded Confirmed Albuterol Inhaler [Ventolin Hfa 2 puff INHALATION Q6HR PRN 11/30/16 11/30/16 Inhaler] Albuterol Nebulized [Ventolin 2.5 mg INHALATION RT-Q4H PRN 11/30/16 11/30/16 Nebulized] Etonogestrel [Nexplanon ( 68 mg SQ [id number] 11/30/16 11/30/16 control implant)] Naproxen Sodium [Aleve] 220 mg PO BID PRN 11/30/16 11/30/16 Previous Rx's Medication Instructions Recorded predniSONE 50 mg PO DAILY #5 tab 11/25/16 Diclofenac Potassium [Cataflam] 50 mg PO TID #20 tablet 11/30/16 Allergies Allergy/AdvReac Type Severity Reaction Status Date / Time No Known Allergies Allergy Verified 09/09/24 20:28 Review of Systems ROS Statement: Those systems with pertinent positive or pertinent negative responses have been documented in the HPI. ROS Other: All systems not noted in ROS Statement are negative. EKG Findings - EKG Comments: EKG Findings:: EKG performed at 20: 28 sinus rhythm rate of 82 MO 132 QRS 89 QT/QTc 380/418 - EKG Results: EKG: interpreted by [facility] Past Medical History Past Medical History: No Reported History Additional Past Medical History / Comment(s): Obstetric history: She has had 3 previous vaginal deliveries. This is her fourth and she has had care with Dr Gusman since 7 weeks gestation. O+, abs neg, Rub nonimmune, RPR NR, Hep B neg, HIV NR. She is gestational diabetic on insulin and has been followed with NSTs. History of Any Multi-Drug Resistant Organisms: None Reported Past Surgical History: No Surgical Hx Reported Additional Past Surgical History / Comment(s): diagnostic laparoscopy, removal of IUD and repair of cervical laceration Past Anesthesia/Blood Transfusion Reactions: No Reported Reaction Past Psychological History: Bipolar, Depression Smoking Status: Current every day smoker, Vaper Past Alcohol Use History: Occasional Past Drug Use History: None Reported, Marijuana General Exam Limitations: no limitations General appearance: alert, in no apparent distress Head exam: Present: atraumatic, normocephalic, normal inspection Eye exam: Present: normal appearance, PERRL, EOMI. Absent: scleral icterus, conjunctival injection, periorbital swelling ENT exam: Present: normal exam, mucous membranes moist Neck exam: Present: normal inspection, full ROM. Absent: tenderness, meningismus, lymphadenopathy Respiratory exam: Present: normal lung sounds bilaterally, chest wall tenderness. Absent: respiratory distress, wheezes, rales, rhonchi, stridor Cardiovascular Exam: Present: regular rate, normal rhythm, normal heart sounds. Absent: systolic murmur, diastolic murmur, rubs, gallop, clicks GI/Abdominal exam: Present: soft, normal bowel sounds. Absent: distended, tenderness, guarding, rebound, rigid Course Vital Signs 09/09/24 09/09/24 20:24 22:00 Temperature 98.3 F Pulse Rate 89 63 Respiratory 18 20 Rate Blood Pressure 119/93 120/85 O2 Sat by Pulse 94 L 98 Oximetry Chest Pain MDM - MDM Was pt. sent in by a medical professional or institution (, PA, DEBONE PROCESSING SUPERVISOR, urgent care, hospital, or senior living...) When possible be specific @ -No Did you speak to anyone other than the patient for history (EMS, parent, family, police, friend...)? What history was obtained from this source @ -No Did you review nursing and triage notes (agree or disagree)? Why? @ -I reviewed and agree with nursing and triage notes Were old charts reviewed (outside hosp., previous admission, EMS record, old EKG, old radiological studies, urgent care reports/EKG's, senior living records)? Report findings @ -No old charts were reviewed Differential Diagnosis (chest pain, altered mental status, abdominal pain women, abdominal pain men, vaginal bleeding, weakness, fever, dyspnea, syncope, headache, dizziness, GI bleed, back pain, seizure, CVA, palpatations, mental health, musculoskeletal)? @ -Differential Chest Pain: Stable Angina, Unstable Angina, STEMI, NSTEMI Aortic Dissection, Pneumothorax, Musculoskeletal, Esophageal Spasm GERD, Cholecystitis, Pancreatitis, Zoster, this is not meant to be an all-inclusive list. EKG interpreted by me (3pts min.). @ -As above X-rays interpreted by me (1pt min.). @ -Chest x-ray shows no acute cardiopulmonary process CT interpreted by me (1pt min.). @ -None done U/S interpreted by me (1pt. min.). @ -None done What testing was considered but not performed or refused? (CT, X-rays, U/S, labs)? Why? @ -None What meds were considered but not given or refused? Why? @ -None Did you discuss the management of the patient with other professionals (professionals i.e. , PA, DEBONE PROCESSING SUPERVISOR, lab, RT, psych nurse, social problems specialist, cattle sorter, teacher, conservation enforcement officer, case sealer)? Give summary @ -No Was smoking cessation discussed for >3mins.? @ -No Was critical care preformed (if so, how long)? @ -No Were there social determinants of health that impacted care today? How? (Homelessness, low income, unemployed, alcoholism, drug addiction, transportati on, low edu. Level, literacy, decrease access to med. care, senior care, rehab)? @ -No Was there de-escalation of care discussed even if they declined (Discuss DNR or withdrawal of care, Hospice)? DNR status @ -No What co-morbidities impacted this encounter? (DM, HTN, Smoking, COPD, CAD, Cancer, CVA, ARF, Chemo, Hep., AIDS, mental health diagnosis, sleep apnea, morbid obesity)? @ -None Was patient admitted / discharged? Hospital course, mention meds given and route, prescriptions, significant lab abnormalities, going to OR and other pertinent info. @ -Discharge patient presented for chest pain patient for completing labs EKG and chest x-ray no acute findings negative D-dimer negative troponin she has reproducible chest wall pain she feels improved at this time will be discharged in stable condition Undiagnosed new problem with uncertain prognosis? @ -No Drug Therapy requiring intensive monitoring for toxicity (Heparin, Nitro, Insulin, Cardizem)? @ -No Were any procedures done? @ -No Diagnosis/symptom? @ -Atypical chest pain Acute, or Chronic, or Acute on Chronic? @ -Acute Uncomplicated (without systemic symptoms) or Complicated (systemic symptoms)? @ -complicated Side effects of treatment? @ -No Exacerbation, Progression, or Severe Exacerbation? @ -No Poses a threat to life or bodily function? How? (Chest pain, USA, MD, pneumonia, PE, COPD, DKA, ARF, appy, cholecystitis, CVA, Diverticulitis, Homicidal, Suicidal, threat to staff... and all critical care pts) @ -No Disposition Clinical Impression: Atypical chest pain Disposition: HOME SELF-CARE Condition: Stable Instructions (If sedation given, give patient instructions): Chest Pain (ED) Additional Instructions: Please return to the Emergency Department if symptoms worsen or any other concerns. Is patient prescribed a controlled substance at d/c from ED?: No Referrals: Joe Alonso Jr, [Primary Care Provider] - 1-2 days Time of Disposition: 22:09
[2024-09-09 21:19] LABS: Appearance,Urine Clear (Clear); Bilirubin,Urine Negative (Negative); Blood,Urine Negative (Negative); Color,Urine Colorless; Glucose,Urine (UA) Negative (Negative); Ketones,Urine Negative (Negative); Leukocyte Esterase,Urine Negative (Negative); Nitrite,Urine Negative (Negative); Protein,Urine Negative (Negative); Specific Gravity,Urine 1.008 (1.001-1.035); Urobilinogen,Urine <2.0 mg/dL (<2.0)
[2024-09-09 21:27] LABS: Amphetamine Screen,Urine Not Detected (NotDetected); Barbiturate Screen,Urine Not Detected (NotDetected); Benzodiazepines Screen,Urine Not Detected (NotDetected); Cocaine Screen,Urine Not Detected (NotDetected); Methadone Screen, Urine Not Detected (NotDetected); Opiate Screen,Urine Not Detected (NotDetected); Oxycodone Screen, Urine Not Detected (NotDetected); Phencyclidine Screen,Urine Not Detected (NotDetected); Tricyclic Antidepressant,Urine Not Detected (NotDetected); Urn Cannabinoid Scrn Not Detected (NotDetected)
[2024-09-09 21:28] LABS: ALT 11 U/L (4-34); AST 22 U/L (14-36); African American GFR (CKD) >90 (>60 ml/min/1.73 sqM); Albumin 4.3 g/dL (3.5-5.0); Alkaline Phosphatase 85 U/L (38-126); Anion Gap 9 mmol/L; Blood Urea Nitrogen 6 mg/dL (7-17); Calcium 8.8 mg/dL (8.4-10.2); Carbon Dioxide 23 mmol/L (22-30); Chloride 107 mmol/L (98-107); Glucose 88 mg/dL (74-99); Lipase 69 U/L (23-300); Magnesium 1.9 mg/dL (1.6-2.3); Non-African American GFR(CKD) >90 (>60 ml/min/1.73 sqM); Sodium 139 mmol/L (137-145); Total Bilirubin 0.4 mg/dL (0.2-1.3); Total Protein 6.7 g/dL (6.3-8.2)
[2024-09-09 22:06] VITALS: BP 120/85; PULSE 63; RESP 20
== END 2024-09-09 22:45 | disposition home or self-care (01) ==
LOC: EC 20:20
DX: R07.89 Other chest pain (principal); F17.290 Nicotine dependence, other tobacco product, uncomplicated
CPT/HCPCS: 36415; 93005; 85379; 80053; 83690; 83735; 84484; 85025; 85610; 85730; 81003; 81025; 80306; 71046; 99285; 96374; J1885

== ENCOUNTER → 2024-12-22 | Outpatient (CLI) | payer OTHER ==
--- NOTE | 2024-12-22 17:47 | CA ---
Exercise Stress Test Report Name: Maria L Hu Exam Date: 12/22/2024 12:04 Exam Location: [place] Stress Ht (in): 63 Wt (lb): 147 BSA: 1.70 Ordering Phys: Marion Alonso DO Referring Phys: MARION ALONSO Technologist: FIGUEROA PALM Age: 34 Gender: F : 1990 Procedure CPT: Indications: R07.9 CHEST PAIN ICD-10 Codes: Patient History: CP, FAMILY HX, CURRENT TOB, NUMBNESS NECK. Medications: SEE LIST Meds past 24 hrs: Pretest Chest Pain: STRESS TEST Bryan Protocol Exercise Duration (min:sec): 10:[address] Depressions (mm): Angina Score: Xie Score: Resting HR (bpm): 88 Peak HR (bpm): 166 Resting BP (mmHg): 126 / 87 Peak BP (mmHg): 154 / 85 MPHR: 185 Target HR: 157 % MPHR: 90 METS: 12.1 Total Dose: Peak Dose: Atropine: Double Product: 23874 BP Response: Stress Termination: TARGET HR REACHED/MAX EXERTION Stress Symptoms: CHEST PAIN Stress Summary: ECG ANALYSIS Resting ECG: Normal sinus rhythm normal axis normal intervals Stress ECG: Patient exercised on Bryan protocol for 10 minutes achieving 85% of predicted maximal heart rate at peak exercise there was [address] segment depression in inferolateral leads CONCLUSIONS Good exercise tolerance Mild abnormal stress test Dr. Fred Foster MD (Electronically Signed) Final Date: 22 December 2024 17:46
== END | disposition home or self-care (01) ==
LOC: RADNMMAIN 11:12
PROVIDERS: ATTEND Family Medicine
DX: R94.39 Abnormal result of other cardiovascular function study (principal); R07.9 Chest pain, unspecified
CPT/HCPCS: 93017